=== PATIENT | female | born 1955 | race Caucasian/White ===

== ENCOUNTER → 2016-08-25 | Outpatient (CLI) | payer MEDICARE ==
[~2016-08-25] MED LIST: ANTACID EXTRA750 M1 PO; ANUSOL-HC25 MG RC; ASPIRIN E.C. 8181 MG PO; B COMPLEX #11 TA1 PO; CAL-MAG1 TAB PO; CRESTOR 10MG10 MG PO; CRESTOR20 MG PO; FERATE27 MG PO; GLUCOTROL 5M5 MG/TAB PO; IRON325 M2 PO; JOINT CARE PO; LANTUS100 U/ML; LANTUS100 U/ML SC; LEVEMIR SQ; LEVEMIR100 U/ML SQ; LISINOPRIL20 MG PO; LOVENOX 4040 MG/0.4 SQ; METOPROLOL25 MG PO; MULTIPLE VITAMI1 CAP PO; NORCO 325 MG-51 TAB PO; NOVOLOG 100U100 U/M1 SC; NOVOLOG 100U100 U/ML SQ; PRIL40 PO; PRINIVIL10 MG PO; PRINIVIL5 MG PO; RISPERDAL 0.5M0.5 MG PO; SYNTHROID 0.0.025 MG PO; SYNTHROID0.05 MG/TA PO; SYNTHROID0.075 MG/T PO; SYNTHROID0.1 MG/TAB PO; TRAVEL SICKNESS25 MG PO; TUMS500 MG PO; TYLENOL 500MG500 MG PO; VITAMIN B COMPL1 T16 PO; VITAMIN C500 MG PO; ZANTAC 150MG T150 MG PO; ZINC PO; ZOCOR 40MG40 MG PO; [UNRECOGNIZED DRUG - OTHER] PO
== END ==
LOC: MC.RAD 10:41
DX: Z12.31 Encounter for screening mammogram for malignant neoplasm of breast (principal); D24.2 Benign neoplasm of left breast; D24.1 Benign neoplasm of right breast

== ENCOUNTER 2016-10-03 00:28 | Emergency (ER) | payer MEDICARE ==
[~2016-10-03] VITALS: Ht 147.3 cm; Wt 77.3 kg
[~2016-10-03 00:28] MED LIST changes: -B COMPLEX #11 TA1 PO; -GLUCOTROL 5M5 MG/TAB PO; -IRON325 M2 PO; -JOINT CARE PO; -LEVEMIR100 U/ML SQ; -PRINIVIL10 MG PO; -PRINIVIL5 MG PO; -SYNTHROID 0.0.025 MG PO; -TRAVEL SICKNESS25 MG PO; -ZINC PO; -ZOCOR 40MG40 MG PO
[2016-10-03 00:29] VITALS: TEMP 97.6
[2016-10-03] MEDS ORDERED: PRINIVIL5 MG PO (00:50)
[2016-10-03] MEDS ORDERED: ZOCOR 40MG40 MG PO (00:50)
[2016-10-03] MEDS ORDERED: SYNTHROID 0.0.025 MG PO (00:51)
[2016-10-03 02:06] LABS: BASO % 0.5 % (0.0-2.0); EOS # 0.2 (0.0-0.7); EOS % 2.2 % (0-4.0); GRAN # 5.6 (1.4-6.5); LYMPH # 1.3 (1.2-3.4); LYMPH % 16.7 % (20.0-51.0); MEAN CELL VOLUME 91 fl (80.0-100.0); MEAN CORPUSCULAR HGB CONC 33 g/dl (33.0-37.0); MEAN PLATELET VOLUME 10.4 fl (7.4-10.4); MONO # 0.5 (0.1-0.6); MONO % 6.2 % (1.7-9.3); PLATELET COUNT 198 K/mm3 (130-400); RED BLOOD COUNT 3.79 M/mm3 (4.10-5.30); REDCELL DISTRIBUTION WIDTH-CV 13.7 % (11.5-14.5); WHITE BLOOD COUNT 7.6 K/mm3 (4.8-10.8)
[2016-10-03 02:09] LABS: PH 5 (5-8); SQUAMOUS EPITHELIAL 0-2 /hpf; URINE APPEARANCE Hazy; URINE BACTERIA Rare /hpf; URINE BILIRUBIN Negative (NEGATIVE); URINE BLOOD Negative (NEGATIVE); URINE COLOR Yellow; URINE GLUCOSE Negative (NEGATIVE); URINE KETONE Negative (NEGATIVE); URINE RBC 0-2 /hpf; URINE UROBILINOGEN Negative (NEGATIVE); URINE WBC 0-2 /hpf
[2016-10-03 02:12] LABS: HEMATOCRIT 34.3 % (37.0-47.0); HEMOGLOBIN 11.4 g/dl (12.5-16.0); MEAN CORPUSCULAR HEMOGLOBIN 30 pg (27.0-31.0)
[2016-10-03 02:18] LABS: ALBUMIN 3.5 gm/dL (3.5-5.0); BILIRUBIN,TOTAL 0.5 mg/dL (0.0-1.0); CALCIUM 9.6 mg/dL (8.4-10.2); CREATININE, serum 1.03 mg/dL (0.52-1.25)
[2016-10-03 05:12] VITALS: BP 156/68; PULSE 84
== END 2016-10-03 05:12 | disposition home or self-care (01) ==
LOC: COL.ER 00:28
PROVIDERS: Emergency Medicine
DX: E11.649 Type 2 diabetes mellitus with hypoglycemia without coma (principal); Z79.4 Long term (current) use of insulin; I45.2 Bifascicular block
CPT/HCPCS: J7040

== ENCOUNTER 2016-10-05 16:00 | Inpatient (IN) | payer MEDICARE ==
[2016-10-05] VITALS (116 sets, daily range): BP systolic 171; BP diastolic 79; PULSE 80; TEMP 97.9; O2SAT 50–100
[~2016-10-05] VITALS: Ht 147.3 cm; Wt 82.9 kg
[~2016-10-05 16:00] MED LIST changes: +PRINIVIL5 MG PO; +SYNTHROID 0.0.025 MG PO; +ZOCOR 40MG40 MG PO
[2016-10-05 18:07] LABS: PH 5 (5-8); SQUAMOUS EPITHELIAL 0-2 /hpf; URINE APPEARANCE Clear; URINE BACTERIA None Seen /hpf; URINE BILIRUBIN Negative (NEGATIVE); URINE BLOOD Negative (NEGATIVE); URINE COLOR Yellow; URINE GLUCOSE 1+ (NEGATIVE); URINE KETONE Negative (NEGATIVE); URINE RBC None Seen /hpf; URINE UROBILINOGEN Negative (NEGATIVE); URINE WBC 0-2 /hpf
[2016-10-05 18:35] LABS: BASO # 0.1 (0.0-0.2); BASO % 0.6 % (0.0-2.0); EOS # 0.1 (0.0-0.7); EOS % 1.7 % (0-4.0); GRAN # 5.7 (1.4-6.5); HEMOGLOBIN 12.1 g/dl (12.5-16.0); LYMPH # 1.4 (1.2-3.4); LYMPH % 17.4 % (20.0-51.0); MEAN CELL VOLUME 93 fl (80.0-100.0); MEAN CORPUSCULAR HEMOGLOBIN 30 pg (27.0-31.0); MEAN CORPUSCULAR HGB CONC 33 g/dl (33.0-37.0); MEAN PLATELET VOLUME 10.3 fl (7.4-10.4); MONO # 0.5 (0.1-0.6); MONO % 6.9 % (1.7-9.3); PLATELET COUNT 187 K/mm3 (130-400); RED BLOOD COUNT 3.99 M/mm3 (4.10-5.30); REDCELL DISTRIBUTION WIDTH-CV 14.2 % (11.5-14.5); WHITE BLOOD COUNT 7.8 K/mm3 (4.8-10.8)
[2016-10-05 18:36] LABS: HEMATOCRIT 36.9 % (37.0-47.0)
[2016-10-05 18:46] LABS: ADJUSTED CALCIUM 9.3 mg/dL (8.4-10.2); ALBUMIN 3.7 gm/dL (3.5-5.0); BILIRUBIN,TOTAL 0.6 mg/dL (0.0-1.0); CALCIUM 9.1 mg/dL (8.4-10.2); CREATININE, serum 0.81 mg/dL (0.52-1.25); POTASSIUM 4.4 mmol/L (3.4-5.0); TOTAL PROTEIN 7.1 gm/dL (6.4-8.2)
[2016-10-06] VITALS (450 sets, daily range): BP systolic 158–183; BP diastolic 48–82; PULSE 76–84; TEMP 97.3–98.4; O2SAT 39–100
[2016-10-06] MEDS ORDERED: IRON325 M2 PO (00:07)
[2016-10-06] MEDS ORDERED: ZINC PO (00:08)
[2016-10-06] MEDS ORDERED: B COMPLEX #11 TA1 PO (00:10)
[2016-10-06] MEDS ORDERED: JOINT CARE PO (00:10)
[2016-10-06] MEDS ORDERED: TRAVEL SICKNESS25 MG PO (00:12)
[2016-10-07 03:48] VITALS: BP 125/35; PULSE 80; TEMP 97.8
[2016-10-07 08:07] VITALS: BP 174/81; PULSE 77; TEMP 98
[2016-10-07] MEDS ORDERED: PRINIVIL10 MG PO (09:55)
[2016-10-07 11:42] VITALS: BP 166/59; PULSE 67; TEMP 98.2
[2016-10-07] MEDS ORDERED: LEVEMIR100 U/ML SQ (13:28)
[2016-10-07] MEDS ORDERED: GLUCOTROL 5M5 MG/TAB PO (14:18)
[2016-10-07 17:00] VITALS: BP 163/69; PULSE 74; TEMP 97.7
== END 2016-10-07 20:16 | disposition home health service (06) | DRG 639 ==
LOC: COL.ER 16:00 → ICU 20:25 → MEDICAL 20:25 → PEDS 10-06 17:43 → MEDICAL 10-06 19:25
PROVIDERS: Family Medicine
DX: E11.649 Type 2 diabetes mellitus with hypoglycemia without coma (principal); E66.01 Morbid (severe) obesity due to excess calories; F31.9 Bipolar disorder, unspecified; E78.5 Hyperlipidemia, unspecified; I10 Essential (primary) hypertension; K21.9 Gastro-esophageal reflux disease without esophagitis; E03.9 Hypothyroidism, unspecified; D64.9 Anemia, unspecified; Z85.42 Personal history of malignant neoplasm of other parts of uterus; E11.40 Type 2 diabetes mellitus with diabetic neuropathy, unspecified; R53.81 Other malaise; Z68.38 Body mass index [BMI] 38.0-38.9, adult
CPT/HCPCS: 99223-AI; 99239; G0378; J1650; J2405; J7040